=== PATIENT | male | born 2000 | race Caucasian/White ===

== ENCOUNTER 2020-02-24 03:04 | Emergency (ER) | payer OTHER ==
[~2020-02-24] VITALS: Ht 175.3 cm; Wt 86.1 kg
[2020-02-24 03:06] VITALS: BP 130/74
[2020-02-24] MEDS ORDERED: diphenhydrAMINE 50MG CAP PO ONE (04:45)
[2020-02-24] MEDS ORDERED: BENA25CA4 PO (05:00)
[2020-02-24] MEDS ORDERED: NAPHSOL OU (05:00)
== END 2020-02-24 05:08 | disposition home or self-care (01) ==
LOC: M ED 03:04
DX: H57.89 Other specified disorders of eye and adnexa (principal); T78.40XA Allergy, unspecified, initial encounter

== ENCOUNTER → 2023-11-30 | Outpatient (REF) | payer OTHER ==
[~2023-11-30] MED LIST: BENA25CA4 PO; NAPHSOL OU
[2023-11-30 09:15] LABS: SEMEN APPEARANCE OPAQUE (OPAQUE); SEMEN VISCOSITY LIQUID (LIQUID); SEMEN VOLUME 1.1 ml (2.0-5.0); SEMEN pH 8.5 (7.0-8.0); SPERM CONCENTRATION 30.3 M/ml (>=15.0); WBC CONCENTRATION >1 M/ml (<=1 M/ml)
== END ==
LOC: M SFHCWAGY 08:19
PROVIDERS: ATTEND Obstetrics & Gynecology
DX: N46.9 Male infertility, unspecified (principal)